=== PATIENT | male | born 1930 | race Caucasian/White ===

== ENCOUNTER 2016-12-25 05:26 | Emergency (ER) | payer MEDICARE, BC ==
--- NOTE | 2016-12-25 06:12 | EDM.PDOC ---
[id number] 4d CHEST PAIN Time Seen by Provider: 12/25/16 05:45 Source of Information: Reports: Patient, Family History Limitations: Reports: No Limitations - History of Present Illness INITIAL COMMENTS - FREE TEXT/NARRATIVE: 86-year-old male with known coronary artery disease woke up this morning about 2 -1/2 hours ago with a burning sensation in his chest, arm, and left leg. He had "never felt anything like it" and it scared him. He had no shortness of breath, diaphoresis, nausea or vomiting but he took 2 nitroglycerin and woke up his . She brought him into the emergency room but the burning had already almost completely resolved. An EKG was done which was reassuring without any ST changes. He looked comfortable, initially was moderately hypertensive but that normalized. Onset: Unknown/Unsure Severity: Mild Associated Symptoms: Denies: Cough, Diaphoresis, Fever/Chills, Malaise, Nausea/ Vomiting, Shortness of Breath, Weakness Treatments HOT STICK MAN: Reports: Nitroglycerin left sided chest pain Pain Score (Numeric/FACES): 1 - Related Data Allergies Allergy/AdvReac Type Severity Reaction Status Date / Time lisinopril Allergy Severe Swelling Verified 12/25/16 05:33 valsartan [From Diovan] Allergy Severe Swelling Verified 12/25/16 05:33 Tetanus Vaccines and Toxoid Allergy Cannot Verified 12/25/16 05:33 [Tetanus Vaccines & Toxoid] Remember Home Meds: Home Meds Carvedilol [Carvedilol] 12.5 mg PO BID 01/24/13 [History] Cholecalciferol (Vitamin D3) [Vitamin D-3] 2,000 units PO DAILY 01/24/13 [ History] [place]-3/DHA/Epa/Fish Oil [Fish Oil 1,000 mg Softgel] 1 cap PO DAILY 01/24/13 [ History] Ubidecarenone [Co Q-10] 200 mg PO DAILY 01/24/13 [History] Vitamin B Complex [B Complex] 1 tab PO DAILY 01/24/13 [History] amLODIPine Besylate [Norvasc] 10 mg PO DAILY 01/24/13 [History] Acetaminophen [Tylenol Extra Strength] 500 mg PO ASDIRECTED PRN 12/25/16 [ History] Ascorbic Acid [Vitamin C] 1,000 mg PO DAILY 12/25/16 [History] Cetirizine [ZyrTEC] 10 mg PO DAILY PRN 12/25/16 [History] Clopidogrel [Plavix] 75 mg PO DAILY 12/25/16 [History] Ferrous Sulfate [Feosol] 325 mg PO DAILY 12/25/16 [History] Furosemide [Lasix] 40 mg PO DAILY 12/25/16 [History] Isosorbide Dinitrate [Isordil] 10 mg PO TID 12/25/16 [History] Potassium Chloride [Klor-Con 10] 10 meq PO DAILY 12/25/16 [History] atorvaSTATin [Lipitor] 80 mg PO ONETIME 12/25/16 [History] hydrALAZINE [Apresoline] 10 mg PO TID 12/25/16 [History] Past Medical History HEENT History: Reports: Hard of Hearing, Impaired Vision Cardiovascular History: Reports: High Cholesterol, Hypertension, MA, Stents, Other (See Below) Other Cardiovascular History: MA March 06 2016 Respiratory History: Reports: None Gastrointestinal History: Reports: None Genitourinary History: Reports: None Musculoskeletal History: Reports: None Neurological History: Reports: CVA, Other (See Below) Other Neuro History: stroke at age 5years Psychiatric History: Reports: None Endocrine/Metabolic History: Reports: None Hematologic History: Reports: None Immunologic History: Reports: None Oncologic (Cancer) History: Reports: None Dermatologic History: Reports: None - Infectious Disease History Infectious Disease History: Reports: Chicken Pox, Measles, Mumps, Rubella, Shingles - Past Surgical History HEENT Surgical History: Reports: None Cardiovascular Surgical History: Reports: Coronary Artery Stent Respiratory Surgical History: Reports: None GI Surgical History: Reports: Colonoscopy Endocrine Surgical History: Reports: None Neurological Surgical History: Reports: None Musculoskeletal Surgical History: Reports: Hip Replacement, Knee Replacement, Other (See Below) Other Musculoskeletal Surgeries/Procedures:: 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 Denies: Fever, Chills, Weakness, Diaphoresis HEENT: Reports: No Symptoms Respiratory: Denies: Shortness of Breath, Cough Cardiovascular: Reports: Chest Pain (No real pain but a burning sensation) GI/Abdominal: Denies: Abdominal Pain, Nausea, Vomiting : Reports: No Symptoms Musculoskeletal: Reports: No Symptoms Neurological: Reports: No Symptoms Psychiatric: Reports: No Symptoms ED EXAM, GENERAL - Physical Exam Exam: See Below Exam Limited By: No Limitations General Appearance: Alert, No Apparent Distress Eye Exam: Bilateral Eye: EOMI Respiratory/Chest: No Respiratory Distress, Lungs Clear Cardiovascular: Regular Rate, Rhythm, Extra Beats (Occasional ectopic beat) GI/Abdominal: Soft, Non-Tender Neurological: Alert, Oriented, No Motor/Sensory Deficits Psychiatric: Normal Affect, Normal Mood Skin Exam: Warm, Dry EKG INTERPRETATION Rhythm: NSR Course - Vital Signs Last Recorded V/S: Last Vital Signs Temp 97.4 F 12/25/16 05:30 Pulse 64 12/25/16 06:03 Resp 12 12/25/16 06:03 BP 178/68 H 12/25/16 06:03 Pulse Ox 95 12/25/16 06:03 - Orders/Labs/Meds Labs: Laboratory Tests 12/25/16 12/25/16 Range/Units 06:00 06:00 WBC 5.5 (4.5-11.0) K/uL RBC 4.46 (4.30-5.90) M/uL Hgb 14.0 (12.0-15.0) g/dL Hct 40.3 (40.0-54.0) % MCV 90 (80-98) fL MCH 31 (27-31) pg MCHC 35 (32-36) % Plt Count 169 (150-400) K/uL Neut % (Auto) 57 (36-66) % Lymph % (Auto) 26 (24-44) % [place] % (Auto) 12 H (2-6) % Eos % (Auto) 5 H (2-4) % Baso % (Auto) 1 (0-1) % Sodium 144 (140-148) mmol/L Potassium 4.0 (3.6-5.2) mmol/L Chloride 109 H (100-108) mmol/L Carbon Dioxide 31 (21-32) mmol/L Anion Gap 8.0 (5.0-14.0) mmol/L BUN 24 H (7-18) mg/dL Creatinine 1.2 (0.8-1.3) mg/dL Est Cr Clr Drug Dosing 42.84 mL/min Estimated GFR (MDRD) 58 L (>60) Glucose 131 H (74-106) mg/dL Calcium 8.3 L (8.5-10.1) mg/dL Troponin I < 0.017 (0.000-0.056) ng/mL - Re-Assessments/Exams Free Text/Narrative Re-Assessment/Exam: 12/25/16 06:47 CBC, BMP and troponin were obtained. All were reassuring, troponin was 0. Patient did not really develop any symptoms and was very anxious to go home. He will return if symptoms redevelop or he has other concerns. Departure - Departure Time of Disposition: 06:59 Disposition: Home, Self-Care 01 Condition: Good Clinical Impression: Atypical chest pain - Discharge Information Instructions: Nonspecific Chest Pain Referrals: Sixto Mayes MD [Primary Care Provider] - Forms: ED Department Discharge Care Plan Goals: Resuming your regular medications. Return any time if worsening or concerns.
[2016-12-25 06:41] VITALS: BP 178/68
== END 2016-12-25 06:59 | disposition home or self-care (01) ==
LOC: JP.ED 05:26
DX: R07.89 Other chest pain (principal); I10 Essential (primary) hypertension; E78.00 Pure hypercholesterolemia, unspecified; I25.10 Atherosclerotic heart disease of native coronary artery without angina pectoris; I25.2 Old myocardial infarction; Z95.5 Presence of coronary angioplasty implant and graft; Z86.73 Personal history of transient ischemic attack (TIA), and cerebral infarction without residual deficits; Z96.652 Presence of left artificial knee joint; Z96.641 Presence of right artificial hip joint; Z79.899 Other long term (current) drug therapy; Z88.7 Allergy status to serum and vaccine; Z88.8 Allergy status to other drugs, medicaments and biological substances
CPT/HCPCS: 36415; 80048; 84484; 85025; 93005; 93010; 99284; 99284-25

== ENCOUNTER 2022-01-01 19:32 | Emergency (ER) | payer MEDICARE ==
[2022-01-01 20:22] VITALS: BP 182/55; PULSE 81
[2022-01-01] MEDS ORDERED: Lidocaine 1% 20 ML MDV INJECT ONE (21:04)
[2022-01-01] MEDS ORDERED: Bacitracin Oint 1 GM U/D Packet TOP ONE (21:05)
[2022-01-01] MEDS ORDERED: Diphtheria,Pertussis(Acell),Tetanus Vaccine 0.5 ML Syringe IM ONE (22:12)
== END 2022-01-01 23:10 | disposition home or self-care (01) ==
LOC: JP.ED 19:32
DX: S09.90XA Unspecified injury of head, initial encounter (principal); S61.011A Laceration without foreign body of right thumb without damage to nail, initial encounter; I25.10 Atherosclerotic heart disease of native coronary artery without angina pectoris; I10 Essential (primary) hypertension; I25.2 Old myocardial infarction; Z23 Encounter for immunization; Z88.8 Allergy status to other drugs, medicaments and biological substances; Z88.7 Allergy status to serum and vaccine; Z79.899 Other long term (current) drug therapy; Z79.82 Long term (current) use of aspirin; W10.9XXA Fall (on) (from) unspecified stairs and steps, initial encounter
CPT/HCPCS: 12001; 70450; 90471; 90715; 99283-25